=== PATIENT | female | born 1955 | race Caucasian/White ===

== ENCOUNTER 2023-02-22 17:52 | Emergency (ER) | payer OTHER, MEDICARE ==
[~2023-02-22] VITALS: Ht 165.1 cm; Wt 99.7 kg
[2023-02-22 18:02] VITALS: BP 123/63
[2023-02-22 18:15] VITALS: BP 116/59
[2023-02-22 18:30] VITALS: BP 121/59
[2023-02-22] MEDS ORDERED: METHOCARBAMOL500 MG PO (19:14)
[2023-02-22] MEDS ORDERED: NAPROXEN500 MG PO (19:14)
[2023-02-22 20:27] VITALS: BP 116/59
== END 2023-02-22 20:29 | disposition home or self-care (01) | DRG 552 ==
LOC: ED 17:52
DX: S16.1XXA Strain of muscle, fascia and tendon at neck level, initial encounter (principal); V49.40XA Driver injured in collision with unspecified motor vehicles in traffic accident, initial encounter